=== PATIENT | male | born 1970 | race Caucasian/White ===

== ENCOUNTER 2018-01-21 14:21 | Emergency (ER) | END 2018-01-21 19:39 | disposition home or self-care (01) ==

== ENCOUNTER 2018-04-22 15:41 | Emergency (ER) | END 2018-04-22 18:42 | disposition home or self-care (01) ==

== ENCOUNTER 2018-08-17 18:28 | Emergency (ER) | END 2018-08-18 00:13 | disposition home or self-care (01) ==